=== PATIENT | female | born 1995 | race Caucasian/White ===

== ENCOUNTER 2020-08-31 11:49 | Emergency (ER) | payer BC, SELFPAY ==
[2020-08-31 11:50] VITALS: BP 132/95; PULSE 82; RESP 20; TEMP 36.8; O2SAT 100; BMI 21.4
--- NOTE | 2020-08-31 11:57 | ECG_ITS ---
APPROVED REPORT Exam: Resting ECG HR:80 bpm ECG Measurements Heart Rate 80 AXES WV 138 P 54 QRSd 88 QRS 68 QT 378 T 26 QTc 435 Conclusion Normal sinus rhythm with sinus arrhythmia Normal ECG Electronically signed by : Bora Humphrey, 09/01/2020 11:36:38
[2020-08-31 12:02] VITALS: BMI 21.4
[2020-08-31 12:16] LABS: Microscopic, Urine URINE MICROSCOPIC (MICROSCOPIC)
[2020-08-31 12:20] LABS: Appearance,Urine SL CLOUDY (Clear); Bilirubin,Urine Negative (Negative); Blood, Urine TRACE-I (Negative); Color,Urine STRAW (Yellow); Glucose,Urine (UA) Negative (Negative); Ketones,Urine Negative (Negative); Leukocyte Esterase,Urine Negative (Negative); Nitrate,Urine Negative (Negative); Protein,Urine Negative (Negative); Specific Gravity, Urine <= 1.005 (1.005-1.030); Urobilinogen,Urine 0.2 EU/dl (0.2)
[2020-08-31 12:20] LABS: Basophils % 0.6 % (0.1-2.0); Eosinophils # 0.1 K/mm3 (0.0-0.4); Eosinophils % 1.1 % (0.1-12.0); Hematocrit 43.4 % (37.0-47.0); Hemoglobin 14.6 g/dL (12.2-16.2); Lymphocytes # 2.2 K/mm3 (0.7-4.5); Lymphocytes % 34.8 % (10-50); Mean Corpuscular HGB Conc 33.6 g/dL (31.8-35.4); Mean Corpuscular Hemoglobin 28.6 pg (27.0-31.2); Mean Corpuscular Volume 85.2 fl (81-99); Mean Platelet Volume 9.2 fl (7.4-10.4); Monocytes # 0.3 K/mm3 (0.1-1.0); Monocytes % 4.9 % (1.7-9.3); Neutrophils # 3.8 K/mm3 (1.8-7.8); Neutrophils % 58.5 % (37.0-80.0); Platelet Count 276 K/mm3 (142-424); Red Blood Count 5.09 M/mm3 (4.20-5.40); Red Cell Distribution Width 12.9 % (11.5-17.5); White Blood Count 6.4 K/mm3 (4.8-10.8)
[2020-08-31 12:21] LABS: Chloride 103 mmol/L (98-107); Sodium 139 mmol/L (136-145)
[2020-08-31 12:23] LABS: Urine Pregnancy, HCG Qual. Negative (Negative)
[2020-08-31 12:24] LABS: Blood Urea Nitrogen 9 mg/dl (7-17); Creatinine Clearance Estimated 146 mL/min (50-200); Estimated Glomerular Filt Rate 120 ml/min (>60); GFR (African American) 145 ML/MIN (>60); Potassium 3.5 mmoL/L (3.5-5.1)
[2020-08-31 12:25] LABS: Anion Gap 12.5 mEq/L (5-15); Calcium 10.3 mg/dl (8.4-10.2); Carbon Dioxide 27 mmol/L (22.0-30.0); Glucose 105 mg/dl (74-100)
[2020-08-31 12:34] LABS: Bacteria,Urine Trace /lpf; RBC,Urine Occasional #/hpf (0-3); Squamous Epithelial Cell,Urine Occasional #/hpf (0-5); WBC,Urine Occasional #/hpf (0-3)
--- NOTE | 2020-08-31 12:34 | CT_ITS ---
PROCEDURE: CT HEAD/BRAIN WO CON CLINICAL INDICATION: dizzy COMPARISON: No exams were available for comparison TECHNIQUE: Unenhanced CT head with axial images obtained. Dose modulation, automated exposure control, and/or iterative reconstruction were used for dose reduction FINDINGS: There is no intra or extra-axial hemorrhage, space occupying lesion or focal fluid collections. Ventricles: The ventricles are within normal limits for size, configuration, and symmetry. The churchill-white differentiation is well preserved throughout, with no evidence of acute infarct. Volume: Brain parenchymal volume is appropriate for age. Osseous Osseous structures are unremarkable. Sinuses: The paranasal sinuses are clear Mastoids: Mastoid air cells are clear. IMPRESSION: No acute intracranial process. Dictated by: Kaylee Steinberg 08/31/2020 13:44 Kaylee Steinberg in [place] 08/31/2020 13:44
[2020-08-31 12:44] LABS: Troponin I < 0.01 ng/ml (0.00-0.034)
[2020-08-31 13:19] VITALS: BP 123/85; PULSE 76; O2SAT 99
--- NOTE | 2020-08-31 13:19 | [facility].EDDIZZ ---
ED Disposition Clinical Impression: Syncope due to orthostatic hypotension Disposition: Home, Self-Care Condition on Discharge: Good Instructions: Dizziness, Nonvertigo Referrals: Malinda Garvin APRN [Primary Care Provider] - - Critical Care Critical Care Time: No Attestation: On 08/31/20, the high probability of a clinically significant, sudden or life threatening deterioration of the following system(s) required my full and direct attention, intervention and personal management. The time I documented below is in addition to time spent performing reported procedures but includes the following listed in this critical care notation. Medical Decision Making - Medical Records Medical records reviewed: Yes: I reviewed the patient's medical records. - Keith Inquiry Pt receiving controlled substance: No Vital Signs: 08/31/20 11:50 08/31/20 13:19 Temperature 98.2 F Temperature Source Oral Pulse Rate 76 Pulse Rate [Left Radial] 82 Respiratory Rate 20 Blood Pressure 123/85 Blood Pressure [Right Arm] 132/95 H Blood Pressure Mean 91 Blood Pressure Mean [Right Arm] 107 Blood Pressure Source [Right Arm] Automatic Cuff Blood Pressure Position [Right Arm] Sitting 02 Sat by Pulse Oximetry 100 99 Oxygen Delivery Method Room Air - Lab Data Lab Results 08/31/20 12:00: WBC 6.4, RBC 5.09, Hgb 14.6, Hct 43.4, MCV 85.2, MCH 28.6, MCHC 33.6, RDW 12.9, Plt Count 276, MPV 9.2, Neut % (Auto) 58.5, Lymph % (Auto) 34.8, [place] % (Auto) 4.9, Eos % (Auto) 1.1, Baso % (Auto) 0.6, Neut # (Auto) 3.8, Lymph # (Auto) 2.2, [place] # (Auto) 0.3, Eos # (Auto) 0.1, Baso # (Auto) 0.0 08/31/20 12:00: Sodium 139, Potassium 3.5, Chloride 103, Carbon Dioxide 27, Anion Gap 12.5, BUN 9, Creatinine 0.60, Estimated Creat Clear 146, Estimated GFR 120, Est GFR ( Amer) 145, Glucose 105 H, Calcium 10.3 H, Troponin I < 0.01 08/31/20 12:11: Urine Color Straw, Urine Appearance Sl cloudy, Urine pH 6.0, Ur Specific [place] <= 1.005, Urine Protein Negative, Urine Glucose (UA) Negative, Urine Ketones Negative, Urine Blood Trace-i, Urine Nitrate Negative, Urine Bilirubin Negative, Urine Urobilinogen 0.2, Ur Leukocyte Esterase Negative, Urine RBC Occasional, Urine WBC Occasional, Ur Squamous Epith Cells Occasional, Urine Bacteria Trace 08/31/20 12:11: Urine HCG, Qual Negative Result diagrams: 08/31/20 12:00 08/31/20 12:00 Orders (Tests/Meds): ED MEDICATIONS Discontinued Medications Generic Name Dose Route Start Last Admin Trade Name Freq PRN Reason Stop Dose Admin Sodium Chloride 1,000 mls @ 999 mls/hr 08/31/20 12:15 08/31/20 12:14 Sod Chlor 0.9% 1000ml Bag IV 08/31/20 13:15 999 mls/hr .Q1H1M ALENA Administration Sodium Chloride 1,000 mls @ 999 mls/hr 08/31/20 12:45 08/31/20 12:51 Sod Chlor 0.9% 1000ml Bag IV 08/31/20 13:45 999 mls/hr .Q1H1M ALENA Administration Ketorolac Tromethamine 30 mg 08/31/20 12:34 08/31/20 12:50 Ketorolac 30mg/Ml Vial IV 08/31/20 12:35 30 mg ONCE ONE Administration Ondansetron HCl 4 mg 08/31/20 12:34 08/31/20 12:50 Ondansetron 4mg/2ml Vial IV 08/31/20 12:35 4 mg ONCE ONE Administration ORDERS Category Date Time Status Troponin I Q3H Lab 08/31/20 15:15 Ordered Troponin I Q3H Lab 08/31/20 18:15 Ordered - CT Data CT Scan: Head Time Received: 14:[address] Reviewed: Yes: I have reviewed the patient's CT results, I have viewed the radiologist's interpretation Preliminary Findings: Normal/NAD - ECG Data Tracing #1 Normal ventricular rate 80 bpm, normal WV interval of 130 ms, normal QTC. Sinus rhythm with no ST changes. ECG initial impression date: 08/31/20 ECG initial impression time: 11:57 - Reevaluation(s) Time: 14:11 Reevaluation #1: On reevaluation, patient is feeling much better. Repeat neurologic exam is normal. CT unremarkable. EKG unremarkable. Patient is to follow-up with PCP in 48 hours. Given strict return precautions. Verbalized un
[2020-08-31 14:28] VITALS: BP 150/97; PULSE 85; RESP 20; TEMP 36.8; O2SAT 100
== END 2020-08-31 14:30 | disposition home or self-care (01) ==
PROVIDERS: Emergency Provider Emergency Medicine; PCP Nurse Practitioner Family
DX: I95.1 Orthostatic hypotension (principal); R55 Syncope and collapse; Z88.0 Allergy status to penicillin
CPT/HCPCS: 70450; 80048; 81001; 81025; 84484; 85025; 93005; 96365; 96367; 96375; 99283; J2405